=== PATIENT | male | born 1995 | race Caucasian/White ===

== ENCOUNTER 2017-01-31 14:19 | Emergency (ER) | payer OTHER ==
[~2017-01-31] VITALS: Ht 177.8 cm; Wt 81.8 kg
[~2017-01-31 14:19] MED LIST: ALBUTEROL0.09 MG/A1 IH; AMOXICILLIN 50500 MG PO; AMOXIL500 MG PO; CEPHALEXIN500 M1 PO; CONCERTA; LORTAB 5/500 501 TAB PO; NO HOME MEDICATIONS; PENICILLIN V500 MG PO; PHENERGAN 25 TA25 MG PO; PHENERGAN W/CO120 ML PO; PHENERGAN25 MG RC; TRAZADONE HYDR100 MG PO; TUSS PO; ZITHROMAX Z PA250 MG PO; ZOLOFT
[2017-01-31 14:21] VITALS: BP 154/75; PULSE 77; TEMP 97.5
== END 2017-01-31 15:29 | disposition home or self-care (01) ==
LOC: COL.ER 14:19
DX: J02.9 Acute pharyngitis, unspecified (principal); F17.210 Nicotine dependence, cigarettes, uncomplicated